=== PATIENT | male | born 2000 | race Caucasian/White ===

== ENCOUNTER 2024-02-06 09:44 | Emergency (ER) | payer OTHER ==
[2024-02-06] MEDS ORDERED: Bacitracin 1 PK ONE (10:44)
== END 2024-02-06 10:50 | disposition home or self-care (01) ==
LOC: ERS 09:44
DX: T22.232A Burn of second degree of left upper arm, initial encounter (principal); X00.0XXA Exposure to flames in uncontrolled fire in building or structure, initial encounter
CPT/HCPCS: 99282